=== PATIENT | female | born 1960 | race Caucasian/White ===

== ENCOUNTER 2022-06-18 15:21 | Emergency (ER) | payer OTHER, SELFPAY ==
--- NOTE | ~2022-06-18 | XR_ITS ---
XR shoulder LT min 2V DATE: 06/18/2022 16:18 INDICATION: Posterior shoulder pain since 06/16/2022 TECHNIQUE: 4 views COMPARISON: None FINDINGS: There is inferior spurring at the left acromion clavicular joint. No fracture, dislocation, periosteal reaction or bone destruction or abnormal soft tissue calcificati on of the left shoulder is detected. Bilateral uncovertebral joint spurring at C5-6 and C6-7. Mild levoscoliosis of the upper thoracic spi ne. IMPRESSION: Degenerative spurring at left clavicular joint Bilateral C5-C6 and C6-7 uncovertebral joint spurring Reviewed, dictated and finalized at location A.
--- NOTE | ~2022-06-18 | XR_ITS ---
XR chest 2V DATE: 06/18/2022 16:50 INDICATION: Left posterior chest pain since 06/16/2022 TECHNIQUE: 2 views COMPARISON: None FINDINGS: Normal heart size. No hilar or mediastinal enlargement. No pulmonary infiltrate or consolid ation, pleural effusion or pulmonary vascular congestion or pneumothorax. Mild scoliosis and degenerative spurring of the thoracic spine. Surgical clips overlie the upper abdomen, visualized on the lateral view, likely due to cholecystecto my. IMPRESSION: No active cardiopulmonary disease Reviewed, dictated and finalized at location A.
[2022-06-18 15:34] VITALS: BP 150/78; PULSE 77; RESP 20; TEMP 36.6; O2SAT 98
--- NOTE | 2022-06-18 16:30 | ED.GENADULT ---
HPI - General Adult General Chief complaint: Extremity Problem,Nontraumatic Stated complaint: Left Shoulder Pain Source: patient Mode of arrival: ambulatory Limitations: no limitations History of Present Illness HPI narrative: Patient presents for evaluation of pain in the left scapular region since Sunday morning. Pain was present upon waking for the day. Pain has been constant since that time, described as stabbing and rated 10 out of 10 in severity. She has applied a heating pad, tried multiple positional changes, ibuprofen, tylenol and used her TENS unit without considerable improvement in her symptoms or after. She denies any fever, chills, or respiratory symptoms. No history of similar symptoms in the past. No recent injury. No underlying history of hypertension or hyperlipidemia. She is diabetic but states home BS 120's. additional complaints or concerns. Related Data Home Medications Medication Instructions Recorded Confirmed cetirizine 10 mg capsule (Zyrtec) 10 mg PO DAILY PRN Allergy Symptoms 10/11/21 06/18/22 cholecalciferol (vitamin D3) 25 25 mcg PO DAILY 10/11/21 06/18/22 mcg (1,000 unit) capsule cyclosporine 0.05 % eye drops in a 1 drp EACH EYE Q12H 10/11/21 06/18/22 dropperette (Restasis) empagliflozin 25 mg tablet 25 mg PO DAILY 10/11/21 06/18/22 (Jardiance) insulin detemir U-100 100 unit/mL 25 unit subcut QHS 10/11/21 06/18/22 (3 mL) subcutaneous pen (Levemir FlexTouch U-100 Insulin) insulin lispro 100 unit/mL 5.5 unit subcut QHS 10/11/21 06/18/22 subcutaneous half-unit pen (Humalog Jevon KwikPen (U-100)) montelukast 10 mg tablet 10 mg PO DAILY 10/11/21 06/18/22 multivitamin 1 tablet PO DAILY 10/11/21 06/18/22 omeprazole 20 mg capsule,delayed 20 mg PO DAILY 10/11/21 06/18/22 release pravastatin 10 mg tablet 10 mg PO DAILY 10/11/21 06/18/22 semaglutide 0.25 mg or 0.5 mg (2 0.25 mg subcut WEEKLY 10/11/21 06/18/22 mg/1.5 mL) subcutaneous pen injector (Ozempic) sitagliptin 50 mg-metformin 1,000 1 tablet PO BID 10/11/21 06/18/22 mg tablet (Janumet) sumatriptan succinate 50 mg tablet 50 mg PO ONCE 10/11/21 06/18/22 lifitegrast 5 % eye drops in a 1 drp EACH EYE BID 06/18/22 06/18/22 dropperette (Xiidra) Allergies Allergy/AdvReac Type Severity Reaction Status Date / Time amoxicillin Allergy Unknown Hives Verified 06/18/22 15:25 Sulfa (Sulfonamide Allergy Unknown Hives Verified 06/18/22 15:25 Antibiotics) sulfamethizole Allergy Unknown hives Verified 06/18/22 15:25 Review of Systems Review of Systems: CONSTITUTIONAL: Denies fever, chills, or sweats. EYES: Denies visual changes, redness, or discharge. ENT: Denies rhinorrhea, congestion, sore throat, or otalgia. CARDIOVASCULAR: Denies chest pain, palpitations, or edema. RESPIRATORY: Denies cough or dyspnea. GASTROINTESTINAL: Denies abdominal pain, nausea, vomiting, or diarrhea. GENITOURINARY: Denies dysuria or hematuria. SKIN: Denies rash or itching. MUSCULOSKELETAL: Reports left scapular pain. Denies joint pain. NEUROLOGIC: Denies headache, numbness, dizziness, or weakness. PSYCHIATRIC: Denies anxiety or depression. [facility] Past Medical History Medical History (Updated 06/18/22 @ 18:12 by JASVIR Velasquez, GERALD) Arthritis Diabetes GERD (gastroesophageal reflux disease) High cholesterol Migraines Screening mammogram, encounter for Surgical History Surgical History H/O LEEP (~09/24/10) History of ankle surgery History of facial surgery History of gynecological procedure (~09/24/10) colpo giovana 2-3 History of knee replacement (12/14/20) left knee Family History Family History Father Cerebrovascular accident Family history of heart disease in male family member before age 55 Sibling Family history of diabetes mellitus in first degree relative Mother Family history of lung cancer
[2022-06-18] MEDS: KETOROLAC (*BKC) 60 MG/2 ML VIAL IM (16:37)
--- NOTE | 2022-06-18 17:24 | ECG_ITS ---
Measurements Intervals [place] Rate: 70 P: 36 FL: 144 QRS: -23 QRSD: 89 T: 31 QT: 404 QTc: 438 Interpretive Statements SINUS RHYTHM DELAYED PRECORDIAL R/S TRANSITION BASELINE ARTIFACT- II, III, AVR, AVF BORDERLINE ECG NO PREVIOUS ECG AVAILABLE FOR COMPARISON Electronically Signed On 06-18-2022 18:54:39 CDT by Vaibhav Canales D.O.
--- NOTE | 2022-06-18 18:36 | PC.NURSE ---
1615 PT IN X RAY. MICHELLE BAILEY RN
--- NOTE | 2022-06-18 18:37 | PC.NURSE ---
1700 PT IN X RAY FOR 2 ND X RAY. MICHELLE BAILEY RN
--- NOTE | 2022-06-18 18:41 | PC.NURSE ---
1705 NO CHANGE IN PT PAIN LEVEL. NEW ORDER FOR EKG. MICHELLE BAILEY RN
== END 2022-06-18 17:55 | disposition home or self-care (01) ==
PROVIDERS: Emergency Provider Nurse Practitioner; PCP Family Medicine
DX: M25.512 Pain in left shoulder (principal); M46.02 Spinal enthesopathy, cervical region; Z87.891 Personal history of nicotine dependence; M19.90 Unspecified osteoarthritis, unspecified site; E11.9 Type 2 diabetes mellitus without complications; K21.9 Gastro-esophageal reflux disease without esophagitis; E78.00 Pure hypercholesterolemia, unspecified; Z96.642 Presence of left artificial hip joint
CPT/HCPCS: 71046; 73030; 93005; 96372; 99214; G0463; J1885